=== PATIENT | female | born 1955 | race Hispanic/Latino ===

== ENCOUNTER 2022-08-27 14:22 | Emergency (ER) | payer MEDICARE ==
[~2022-08-27] VITALS: Ht 162.6 cm; Wt 87.1 kg
[2022-08-27] MEDS ORDERED: NEXIUM40 MG PO (17:56)
[2022-08-27] MEDS ORDERED: DICYCLOMINE HCL10 MG PO (17:56)
== END 2022-08-27 18:08 | disposition home or self-care (01) ==
LOC: FSED 14:54
DX: R10.11 Right upper quadrant pain (principal); I10 Essential (primary) hypertension; E11.9 Type 2 diabetes mellitus without complications; E78.5 Hyperlipidemia, unspecified
CPT/HCPCS: 74176; 76705; 80048; 80076; 85025; 99284

== ENCOUNTER → 2022-09-29 | Day surgery (SDC) | payer MEDICARE ==
[2022-09-27 11:26] LABS: BASOPHILS # (AUTO) 0.1 (0.0-0.1); EOSINOPHILS # (AUTO) 0.2 (0.0-0.4); EOSINOPHILS % 2.6 % (0.0-6.0); HEMATOCRIT 43.4 % (34.2-44.1); LYMPHOCYTES # (AUTO) 2.8 (1.0-3.2); LYMPHOCYTES % 40.3 % (18.0-39.1); MEAN CORPUSCULAR HEMOGLOBIN 30.9 pg (28-32); MEAN CORPUSCULAR HGB CONC 32.3 g/dL (31-35); MEAN CORPUSCULAR VOLUME 95.8 fL (81-99); MONOCYTES # (AUTO) 0.5 (0.2-0.8); NEUTROPHILS # (AUTO) 3.4 (2.1-6.9); PLATELET COUNT 178 x10e3/uL (140-360); RED BLOOD COUNT 4.53 x10e6/uL (3.6-5.1); RED CELL DISTRIBUTION WIDTH 12.7 % (11.7-14.4)
[~2022-09-29] MED LIST: ALENDRONATE SOD70 MG PO; CALCIUM + VIT1 EACH PO; CANDICIDAL CAP1 EACH PO; DICYCLOMINE HCL10 MG PO; DICYCLOMINE HCL20 MG PO; LOSARTAN POTASS25 MG PO; NEXIUM40 MG PO; [UNRECOGNIZED DRUG - OTHER] PO
[2022-09-29 12:03] LABS: ALBUMIN 3.7 g/dL (3.5-5.0); ALBUMIN/GLOBULIN RATIO 1.2 (0.8-2.0); ANION GAP 12.8 mmol/L (8-16); CALCIUM 9.2 mg/dL (8.4-10.2); CREATININE, SERUM 0.73 mg/dL (0.57-1.11); POTASSIUM 3.8 mmol/L (3.5-5.1)
[2022-09-29 12:15] VITALS: BP 180/79
== END | disposition home or self-care (01) ==
LOC: OR 08:21
PROVIDERS: ATTEND Internal Medicine Gastroenterology
DX: K21.9 Gastro-esophageal reflux disease without esophagitis (principal); K20.90 Esophagitis, unspecified without bleeding; K29.50 Unspecified chronic gastritis without bleeding; K76.0 Fatty (change of) liver, not elsewhere classified; N28.9 Disorder of kidney and ureter, unspecified; Z68.36 Body mass index [BMI] 36.0-36.9, adult; M19.90 Unspecified osteoarthritis, unspecified site; E78.5 Hyperlipidemia, unspecified; R73.03 Prediabetes; Z01.810 Encounter for preprocedural cardiovascular examination; Z01.812 Encounter for preprocedural laboratory examination; Z88.6 Allergy status to analgesic agent; B96.81 Helicobacter pylori [H. pylori] as the cause of diseases classified elsewhere
CPT/HCPCS: 36415 ×2; 43239; 80053; 85025; 93005; C9113

== ENCOUNTER 2023-09-10 12:26 | Outpatient (RCR) | payer MEDICARE | END 2023-09-17 | LOC: OT 12:26 | PROVIDERS: ATTEND Physician Assistant | DX: M75.82 Other shoulder lesions, left shoulder (principal) ==